=== PATIENT | female | born 1975 | race Two or more races ===

== ENCOUNTER 2021-12-09 12:30 | Emergency (ER) | payer OTHER ==
[~2021-12-09] VITALS: Ht 165.1 cm; Wt 85.7 kg
[2021-12-09 12:44] VITALS: BP 162/95
[2021-12-09] MEDS ORDERED: LEVE500T9 PO (12:50)
[2021-12-09] MEDS ORDERED: AMLO5TAB4 PO (12:50)
--- NOTE | 2021-12-09 12:50 | NUR ---
Left hand pain, possible animal bite. The patient is not sure what kind of animal bit her left hand. The patient states that this happened while she was working.
--- NOTE | 2021-12-09 12:50 | NUR ---
Placed to ER chair #3, awaiting for MD to see
[2021-12-09] MEDS ORDERED: DIPHENHYDRAMINE HCL 12.5 MG/5 ML UDC PO ONE (13:00)
--- NOTE | 2021-12-09 13:00 | NUR ---
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
[2021-12-09] MEDS ORDERED: diphenhydrAMINE HCL 25 MG CAPSULE ONE ×2 (13:13→13:15)
[2021-12-09] MEDS ORDERED: SULF1TAB48 PO (14:04)
[2021-12-09] MEDS ORDERED: CEPH500C2 PO (14:04)
--- NOTE | 2021-12-09 14:20 | NUR ---
Patient discharged to home in stable condition. Written and verbal after care instructions given. Patient verbalizes understanding of instruction.
== END 2021-12-09 14:20 | disposition home or self-care (01) ==
LOC: ER 12:42
DX: T63.481A Toxic effect of venom of other arthropod, accidental (unintentional), initial encounter (principal); L25.8 Unspecified contact dermatitis due to other agents; L03.114 Cellulitis of left upper limb; M79.642 Pain in left hand; I10 Essential (primary) hypertension; Z79.899 Other long term (current) drug therapy; Y92.89 Other specified places as the place of occurrence of the external cause
CPT/HCPCS: 99283; 73130; Q0163 ×2